=== PATIENT | female | born 1965 | race Caucasian/White ===

== ENCOUNTER 2017-06-25 13:57 | Emergency (ER) | payer SELFPAY ==
[2017-06-25 15:36] VITALS: BP 99/72
--- NOTE | 2017-06-25 16:21 | UC ---
Knee Pain HPI - History of Current Complaint Chief Complaint: UCLowerExtremity Stated Complaint: RIGHT KNEE INJURY Time Seen by Provider: 06/25/17 15:53 Hx Obtained From: Patient ?: No Onset/Duration: Sudden Onset - knee buckled by a hamper that she was pulling on when in gave way., Lasting Days - 1, Still Present Severity Initially: Severe Severity Currently: Mild Character: Sharp Aggravating Factor(s): Movement, Weight Bearing, Prolonged Standing, Stairs Alleviating Factor(s): Rest Able to Bear Weight: Yes - Allergies/Home Medications Allergies/Adverse Reactions: Allergies Allergy/AdvReac Type Severity Reaction Status Date / Time No Known Allergies Allergy Verified 06/25/17 15:26 Home Medications: Home Medications Estradiol (NF) 0.5 mg PO DAILY 06/25/17 [History Confirmed 06/25/17] Ibuprofen TAB* [Advil TAB*] 200 mg PO Q6H PRN 06/25/17 [History Confirmed ] Thyroid [[place] Thyroid] 90 mg PO DAILY 06/25/17 [History Confirmed 06/25/17] PMH/Surg Hx/FS Hx/Imm Hx - Additional Past Medical History Additional PMH: ACL tear 22 years ago, not repaired. No pain since then. Endocrine History: Hypothyroidism - Surgical History Surgical History: Yes Surgery Procedure, Year, and Place: ANKLE RECONSTRUCTION - Family History Known Family History: Positive: Cardiac Disease, Diabetes Negative: Hypertension - Social History Occupation: Employed Full-time Lives: Alone - with BF Alcohol Use: Rare Substance Use Type: None Smoking Status (MU): Light Every Day Tobacco Smoker Type: Cigarettes Amount Used/How Often: 1/2 PPD Have You Smoked in the Last Year: Yes Review of Systems Musculoskeletal: Arthralgia - right knee after trauma All Other Systems Reviewed And Are Negative: Yes Physical Exam Triage Information Reviewed: Yes Appearance: Well-Appearing, Well-Nourished, Pain Distress - with ambulation Vital Signs: Initial Vital Signs Temp 98.8 F 06/25/17 15:28 Pulse 75 06/25/17 15:28 Resp 18 06/25/17 15:28 BP 99/72 06/25/17 15:28 Pulse Ox 99 06/25/17 15:28 Vital Signs Reviewed: Yes Eyes: Positive: Conjunctiva Clear Neck exam: Normal Respiratory Exam: Normal Cardiovascular Exam: Normal Musculoskeletal: Positive: ROM Limited @ - right knee with effusion., Other: - Unable to do Mcmurrays with effusion. No MCL/LCL laxity. Neurological Exam: Normal Psychological Exam: Normal Skin Exam: Normal Knee Pain Course/Dx - Differential Dx/Diagnosis Differential Diagnosis/HQI/PQRI: Contusion, Fracture (Closed), Sprain, Strain Provider Diagnoses: knee sprain Discharge - Discharge Plan Condition: Stable Disposition: HOME Patient Education Materials: Knee Sprain (ED), Knee Immobilizer (ED) Referrals: Florentin Bolanos MD [Medical Doctor] - 2 Days Additional Instructions: Use ice, keep leg elevated. Use crutches. See orthopedist on tuesday.
--- NOTE | 2017-06-25 16:55 | RAD ---
HISTORY: Right knee pain, effusion COMPARISONS: None VIEWS: 4, Frontal, lateral, axial, and oblique views of the right knee FINDINGS: BONE DENSITY: Normal. BONES: There is no displaced fracture. JOINTS: There is no arthropathy. There is a small suprapatellar joint effusion. ALIGNMENT: There is no dislocation. SOFT TISSUES: Unremarkable. OTHER FINDINGS: None. IMPRESSION: NO ACUTE OSSEOUS INJURY. SMALL JOINT EFFUSION. IF SYMPTOMS PERSIST, RECOMMEND REPEAT IMAGING.
== END 2017-06-25 17:23 | disposition home or self-care (01) ==
LOC: UCCORT 13:57
DX: S83.91XA Sprain of unspecified site of right knee, initial encounter (principal); X58.XXXA Exposure to other specified factors, initial encounter
CPT/HCPCS: 99202; G0463

== ENCOUNTER 2018-04-03 09:47 | Emergency (ER) | payer BC, OTHER ==
[2018-04-03 10:14] VITALS: BP 119/76
--- NOTE | 2018-04-03 10:45 | ED ---
"Upper Extremity Pain - HPI Summary HPI Summary: 52 yr old female with right hand pain. Onset over the weekend. She does a lot of gardening. She does not recall any injury. Pain is mostly over the right 5th MP joint area and she has a lot of pain with minimal movement of that joint. There is also swelling to the entire right hand as well with the right fingers being larger than the left hand fingers. The patient is left handed. She denies fever, chills. She denies swelling in the forearm or upper arm. She reports that she has restricted range of motion in the fingers of the right hand. - History of Current Complaint Chief Complaint: UCUpperExtremity Stated Complaint: SWELLING IN RIGHT HAND Time Seen by Provider: 04/03/18 10:21 - Allergies/Home Medications Allergies/Adverse Reactions: Allergies Allergy/AdvReac Type Severity Reaction Status Date / Time No Known Allergies Allergy Verified 06/25/17 15:26 PMH/Surg Hx/FS Hx/Imm Hx Endocrine/Hematology History: Reports: Hx Thyroid Disease - HYPOTHYROID - Surgical History Surgery Procedure, Year, and Place: ANKLE RECONSTRUCTION. HYSTERECTOMY. KNEE SURGERY Infectious Disease History: No Infectious Disease History: Reports: Hx Shingles - 2012, Traveled Outside the in Last 30 Days - [facility] - Family History Known Family History: Positive: Cardiac Disease, Diabetes Negative: Hypertension - Social History Alcohol Use: Rare Substance Use Type: Reports: None Smoking Status (MU): Former Smoker Type: Cigarettes Amount Used/How Often: 1/2 PPD Have You Smoked in the Last Year: Yes Review of Systems Constitutional: Negative Positive: Edema - right hand All Other Systems Reviewed And Are Negative: Yes Physical Exam Triage Information Reviewed: Yes Vital Signs On Initial Exam: Initial Vitals Temp Pulse Resp BP Pulse Ox 99.3 F 76 16 119/76 100 04/03/18 10:05 04/03/18 10:05 04/03/18 10:05 04/03/18 10:05 04/03/18 10:05 Vital Signs Reviewed: Yes Appearance: Positive: Well-Appearing, No Pain Distress Skin: Positive: Warm, Skin Color Reflects Adequate Perfusion Head/Face: Positive: Normal Head/Face Inspection Respiratory/Lung Sounds: Positive: Other - normal effort Cardiovascular: Positive: Pulses are Symmetrical in both Upper and Lower Extremities - radial wnl Abdomen Description: Negative: Distended Musculoskeletal: Positive: Strength/ROM Intact, Other - right hand fingers appear larger and more swollen than the left hand. She has tenderness over the volar 5th MP area with slight redness into the hypothenar area. She has tenderness on minimal passive movement of the flexor tendon. The left and right upper arms, and forearms are symmetric in size, and both nontender without edema or redness. Neurological: Positive: Sensory/Motor Intact, Alert, Oriented to Person Place, Time, CN Intact II-III, Normal Gait Psychiatric: Positive: Normal - [place] Coma Scale Best Eye Response: 4 - Spontaneous Best Motor Response: 6 - Obeys Commands Best Verbal Response: 5 - Oriented Coma Scale Total: 15 Diagnostics - Vital Signs Vital Signs Temp Pulse Resp BP Pulse Ox 04/03/18 10:05 99.3 F 76 16 119/76 100 - Laboratory Lab Statement: Any lab studies that have been ordered have been reviewed, and results considered in the medical decision making process. - Radiology right hand Xray Interpretation: No Acute Changes Radiology Interpretation Completed By: Radiologist Course/Dx - Course Course Of Treatment: 52 yr old with right hand swelling, and pain redness over the 5th MP joint with pain on passive flex tendon movement. Concern for infection of the flex tendon and possible early hypothenar area infection. She has no proximal arm swelling. Have called [facility] at [facility] in [place], [place] and they will see her at 130pm by DR MARTÍNEZ. - Diagnoses Provider Diagnoses: Tenosynovitis of hand, Cellulitis of hand, right Discharge - Sign-Out/Discharge Documenting (check all that apply): Discharge/Admit/Transfer - Discharge Plan Condition: Good Disposition: HOME Patient Education Materials: Tenosynovitis (ED), Cellulitis (ED) Referrals: Weston COLBERT,Anya [Primary Care Provider] - Joe COLBERT,Gunner Headley [Medical Doctor] - 04/03/18 1:30 pm Additional Instructions: YOUR APPOINTMENT IS AT THE [facility] TODAY. [facility] | [facility]OS 3.5 23 reviews Medical Clinic DirectionsWebsite Address: [address] [place] [address] Open today 8AM4:30PM - Billing Disposition and Condition Condition: GOOD Disposition: Home"
--- NOTE | 2018-04-03 10:56 | RAD ---
HISTORY: Right hand pain and swelling COMPARISONS: None VIEWS: 4, Frontal, lateral, and oblique views of the right hand. Evaluation of the proximal phalanx of the fourth digit is limited by the presence of metallic jewelry. FINDINGS: BONE DENSITY: Normal. BONES: There is no displaced fracture. 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 ALIGNMENT: There is no dislocation. SOFT TISSUES: Unremarkable. OTHER FINDINGS: None. IMPRESSION: NO ACUTE OSSEOUS INJURY. IF SYMPTOMS PERSIST, RECOMMEND REPEAT IMAGING.
[2018-04-03] MEDS ORDERED: Cephalexin CAP* 500 MG PO ONE (11:07)
== END 2018-04-03 11:40 | disposition home or self-care (01) ==
LOC: UCCORT 09:47
DX: M65.841 Other synovitis and tenosynovitis, right hand (principal); L03.113 Cellulitis of right upper limb; Y93.H2 Activity, gardening and landscaping; Y92.007 Garden or yard of unspecified non-institutional (private) residence as the place of occurrence of the external cause; Z87.891 Personal history of nicotine dependence
CPT/HCPCS: 99212; A9270-GY; G0463